=== PATIENT | female | born 1990 | race Caucasian/White ===

== ENCOUNTER → 2020-10-03 12:31 | Outpatient (CLI) | payer SELFPAY ==
[2013-12-30 16:02] VITALS: BMI 26.5
[2020-10-04 09:30] LABS: Hepatitis B Surface Antibody Reactive; Hepatitis B Surface Antigen Non-Reactive (Nonreactive); Rubella IgG Reactive (Nonreactive); SARS-COV-2 TOTAL ABS Nonreactive (Nonreactive)
[2020-10-05 16:28] LABS: Mumps Antibody,IgG < 9.0 AU/mL (Immune >10.9); Rubeola IgG Ab > 300.0 AU/mL (Immune >16.4); V-Zoster IgG (Immunity) 1960 index (Immune >165)
== END ==
PROVIDERS: PCP Family Medicine; Referring Provider Family Medicine; Visit Provider Family Medicine
DX: Z02.1 Encounter for pre-employment examination (principal)
CPT/HCPCS: 36415; 86706; 86735; 86762; 86765; 86769; 86787; 87340

== ENCOUNTER → 2021-01-22 15:57 | Outpatient (CLI) | payer OTHER, SELFPAY ==
[2013-12-30 16:02] VITALS: BMI 26.5
== END ==
PROVIDERS: PCP Family Medicine; Referring Provider Family Medicine; Visit Provider Family Medicine
DX: Z23 Encounter for immunization (principal)
CPT/HCPCS: 36415; 86735